=== PATIENT | female | born 1995 | race Caucasian/White ===

== ENCOUNTER → 2016-08-26 | Outpatient (CLI) | payer OTHER ==
[~2016-08-26] MED LIST: ACET50TA PO; IBUP80TA PO; PRENATAL VITAMIN PO; RANI15TA PO; TUMS500C PO; TYLE325T5 PO
--- NOTE | 2016-08-26 14:35 | REP ---
ABDOMINAL SERIES: Lower back pain. PRIORS: None. FINDINGS: Supine and upright views of the abdomen show the intestinal gas pattern to be nonspecific. Gas and stool is seen throughout the colon within the rectosigmoid region. The organ silhouettes insofar as delineated appear unremarkable. No abdominal calcific densities are seen within the abdomen or pelvis. The accompanying single frontal view of the chest shows no free subdiaphragmatic air, cardiomegaly, infiltrates or effusions. IMPRESSION: Nonspecific intestinal gas pattern. Signed by Elie Ospina DO 08/26/2016 03:23 P
[2016-08-26 16:52] LABS: MEAN CORPUSCULAR HEMOGLOBIN 27.9 pg (27.0-33.0); MEAN CORPUSCULAR HGB CONC 33.1 g/dl (32.0-36.5); MEAN CORPUSCULAR VOLUME 84.3 fl (80.0-96.0)
[2016-08-26 17:05] LABS: ALBUMIN/GLOBULIN RATIO 1.11 (1.00-1.93); ALKALINE PHOSPHATASE 138 U/L (45-117); ALT/SGPT 24 U/L (12-78); AMYLASE 36 U/L (25-115); ANION GAP 5 MEQ/L (8-16); AST/SGOT 14 U/L (15-37); BILIRUBIN,TOTAL 0.3 MG/DL (0.2-1.0); BLOOD UREA NITROGEN 9 MG/DL (7-18); CALCIUM LEVEL 9.3 MG/DL (8.5-10.1); CARBON DIOXIDE LEVEL 30 MEQ/L (21-32); CHLORIDE LEVEL 104 MEQ/L (98-107); CREATININE FOR GFR 0.82 MG/DL (0.55-1.02); FREE T4 1.01 NG/DL (0.76-1.46); GLOMERULAR FILTRATION RATE > 60.0 (>60); GLUCOSE, FASTING 87 MG/DL (70-105); POTASSIUM SERUM 4.1 MEQ/L (3.5-5.1); SODIUM LEVEL 139 MEQ/L (136-145); TOTAL PROTEIN 7.6 GM/DL (6.4-8.2)
[2016-08-26 20:43] LABS: EOSINOPHILS 3 % (0-5)
== END ==
LOC: M WUC 13:49
PROVIDERS: ATTEND Physician Assistant
DX: R10.30 Lower abdominal pain, unspecified (principal)

== ENCOUNTER → 2017-04-17 | Outpatient (CLI) | payer OTHER ==
[2017-04-17 19:09] LABS: BASO % 0.5 % (0.0-1.0); EOS % 0.5 % (0.0-3.0); HEMATOCRIT 41.3 % (36.0-47.0); HEMOGLOBIN 13.9 g/dl (12.0-16.0); IMMATURE GRANULOCYTE % 0.2 % (0-0); LYMPH # 1.6 10^3/uL (1.5-6.5); LYMPH % 24.3 % (24.0-44.0); MEAN CORPUSCULAR HEMOGLOBIN 28.7 pg (27.0-33.0); MEAN CORPUSCULAR HGB CONC 33.7 g/dl (32.0-36.5); MEAN CORPUSCULAR VOLUME 85.3 fl (80.0-96.0); MONO # 0.4 10^3/uL (0.0-0.8); MONO % 5.9 % (0.0-5.0); NEUTROPHILS # 4.4 10^3/uL (1.8-7.7); NEUTROPHILS % 68.6 % (36.0-66.0); PLATELET COUNT, AUTOMATED 259 10^3/uL (150-450); RED BLOOD COUNT 4.84 10^6/uL (4.00-5.40); RED CELL DISTRIBUTION WIDTH 12.9 % (11.5-14.5); WHITE BLOOD COUNT 6.4 10^3/uL (4.0-10.0)
[2017-04-17 19:54] LABS: ALT/SGPT 15 U/L (12-78); AST/SGOT 9 U/L (7-37); BILIRUBIN,TOTAL 0.3 MG/DL (0.2-1.0); GLOMERULAR FILTRATION RATE > 60.0 (>60); GLUCOSE CHALLENGE TEST 1 HOUR 105 MG/DL (LESS THAN 140); LDH LACTATE DEHYDROGENASE 136 U/L (84-246); URIC ACID 4.3 MG/DL (2.6-6.0)
[2017-04-17 21:39] LABS: CHLAMYDIA DNA AMPLIFICATION NEGATIVE (NEGATIVE); GC DNA AMPLIFICATION NEGATIVE (NEGATIVE)
[2017-04-17 21:42] LABS: ESTIMATED AVERAGE GLUCOSE 97 MG/DL (60-110)
[2017-04-19 11:18] LABS: RUBELLA IgG QUALITATIVE IMMUNE (IMMUNE)
[2017-04-19 11:37] LABS: HBsAg Prenatal NEGATIVE (NEGATIVE)
[2017-04-19 11:48] LABS: HIV 1&2 SCREEN CENTAUR NEGATIVE (NEGATIVE)
== END ==
LOC: M SMT 10:31
DX: Z34.81 Encounter for supervision of other normal pregnancy, first trimester (principal); Z3A.09 9 weeks gestation of pregnancy
CPT/HCPCS: 84460

== ENCOUNTER → 2017-05-22 | Outpatient (CLI) | payer OTHER | LOC: M SMT 13:04 | DX: Z34.82 Encounter for supervision of other normal pregnancy, second trimester (principal) | CPT/HCPCS: 76811 ==

== ENCOUNTER 2017-06-11 21:33 | Outpatient (CLI) | payer OTHER ==
[2017-06-11 22:29] LABS: HEMATOCRIT 35.2 % (36.0-47.0); MEAN CORPUSCULAR HEMOGLOBIN 28.6 pg (27.0-33.0); MEAN CORPUSCULAR HGB CONC 34.1 g/dl (32.0-36.5); PLATELET COUNT, AUTOMATED 228 10^3/uL (150-450); RED BLOOD COUNT 4.19 10^6/uL (4.00-5.40); RED CELL DISTRIBUTION WIDTH 12.6 % (11.5-14.5); WHITE BLOOD COUNT 9.6 10^3/uL (4.0-10.0)
[2017-06-11 22:44] LABS: ALBUMIN 3.1 GM/DL (3.2-5.2); ALBUMIN/GLOBULIN RATIO 0.84 (1.00-1.93); ALKALINE PHOSPHATASE 79 U/L (45-117); ALT/SGPT 15 U/L (12-78); ANION GAP 9 MEQ/L (8-16); AST/SGOT 7 U/L (7-37); BILIRUBIN,TOTAL 0.2 MG/DL (0.2-1.0); BLOOD UREA NITROGEN 9 MG/DL (7-18); CALCIUM LEVEL 8.6 MG/DL (8.5-10.1); CARBON DIOXIDE LEVEL 25 MEQ/L (21-32); CHLORIDE LEVEL 106 MEQ/L (98-107); CREATININE FOR GFR 0.52 MG/DL (0.55-1.30); GLOMERULAR FILTRATION RATE > 60.0 (>60); GLUCOSE, FASTING 95 MG/DL (70-100); LDH LACTATE DEHYDROGENASE 109 U/L (84-246); POTASSIUM SERUM 3.9 MEQ/L (3.5-5.1); SODIUM LEVEL 140 MEQ/L (136-145); TOTAL PROTEIN 6.8 GM/DL (6.4-8.2)
[2017-06-11 22:48] LABS: APPEARANCE, URINE CLEAR (CLEAR); BACTERIA, URINE AUTO 1+ (NEGATIVE); BILIRUBIN, URINE AUTO NEGATIVE (NEGATIVE); BLOOD, URINE BLOOD NEGATIVE (NEGATIVE); COLOR, URINE YELLOW (YELLOW); GLUCOSE, URINE (UA) AUTO NEGATIVE (NEGATIVE); KETONE, URINE AUTO NEGATIVE (NEGATIVE); LEUKOCYTE ESTERASE, URINE AUTO NEGATIVE (NEGATIVE); NITRITE, URINE AUTO NEGATIVE (NEGATIVE); PROTEIN, URINE AUTO NEGATIVE (NEGATIVE); RBC, URINE AUTO 0 /HPF (0-3); SQUAMOUS EPITHELIAL CELL UR AU 1 /HPF (0-6); UROBILINOGEN, URINE AUTO 0.2 mg/dL (0.0-2.0); WBC, URINE AUTO 1 /HPF (0-3)
[2017-06-11 23:07] LABS: CREATININE,RANDOM URINE 61.8 MG/DL
[2017-06-11 23:07] LABS: TOTAL PROTEIN,RANDOM URINE 10.5 MG/DL (0.0-12.0)
[2017-06-12] MEDS: SIMETHICONE 80 MG CHEW TAB PO (00:48)
== END 2017-06-12 01:00 | disposition home or self-care (01) ==
LOC: M LDO 21:33
DX: O99.89 Other specified diseases and conditions complicating pregnancy, childbirth and the puerperium (principal); Z3A.20 20 weeks gestation of pregnancy; O99.612 Diseases of the digestive system complicating pregnancy, second trimester; R19.7 Diarrhea, unspecified; R51 Headache; R10.13 Epigastric pain
CPT/HCPCS: 76705

== ENCOUNTER → 2017-07-10 | Outpatient (CLI) | payer OTHER | LOC: M SMT 11:24 | DX: Z36.2 Encounter for other antenatal screening follow-up (principal); Z3A.25 25 weeks gestation of pregnancy | CPT/HCPCS: 76816 ==

== ENCOUNTER → 2017-08-16 | Outpatient (CLI) | payer OTHER | LOC: M SMT 10:11 | DX: O10.013 Pre-existing essential hypertension complicating pregnancy, third trimester (principal); Z3A.30 30 weeks gestation of pregnancy | CPT/HCPCS: 76816 ==

== ENCOUNTER → 2017-08-22 | Outpatient (CLI) | payer OTHER ==
[2017-08-22 07:44] LABS: HEMATOCRIT 35.1 % (36.0-47.0); HEMOGLOBIN 11.8 g/dl (12.0-15.5); MEAN CORPUSCULAR HEMOGLOBIN 28.2 pg (27.0-33.0); MEAN CORPUSCULAR HGB CONC 33.6 g/dl (32.0-36.5); MEAN CORPUSCULAR VOLUME 83.8 fl (80.0-96.0); PLATELET COUNT, AUTOMATED 206 10^3/uL (150-450); RED BLOOD COUNT 4.19 10^6/uL (4.00-5.40); RED CELL DISTRIBUTION WIDTH 13.2 % (11.5-14.5); WHITE BLOOD COUNT 9.2 10^3/uL (4.0-10.0)
[2017-08-22 08:08] LABS: GLUCOSE CHALLENGE TEST 1 HOUR 135 MG/DL (LESS THAN 140)
== END ==
LOC: M LAB 06:13
DX: O10.02 Pre-existing essential hypertension complicating childbirth (principal)
CPT/HCPCS: 82950

== ENCOUNTER → 2017-08-31 | Outpatient (CLI) | payer OTHER ==
[2017-08-31 08:08] LABS: GLUCOSE, FASTING 85 MG/DL (LESS THAN 95)
[2017-08-31 09:49] LABS: 1 HR GLUCOSE 147 MG/DL (LESS THAN 180)
[2017-08-31 10:17] LABS: 2 HR GLUCOSE 135 MG/DL (LESS THAN 155)
[2017-08-31 11:10] LABS: 3 HR GLUCOSE 44 MG/DL (LESS THAN 140)
== END ==
LOC: M LAB 07:20
DX: O10.013 Pre-existing essential hypertension complicating pregnancy, third trimester (principal)
CPT/HCPCS: 82951

== ENCOUNTER → 2017-09-06 | Outpatient (CLI) | payer OTHER | LOC: M SMT 14:06 | DX: O10.013 Pre-existing essential hypertension complicating pregnancy, third trimester (principal); Z3A.33 33 weeks gestation of pregnancy | CPT/HCPCS: 76816 ==

== ENCOUNTER → 2017-09-21 | Outpatient (REF) | payer OTHER | LOC: M LAB REF 16:57 | DX: O10.013 Pre-existing essential hypertension complicating pregnancy, third trimester (principal) ==

== ENCOUNTER → 2017-10-10 | Outpatient (CLI) | payer OTHER | LOC: M RAD 13:55 | DX: O10.013 Pre-existing essential hypertension complicating pregnancy, third trimester (principal); Z3A.37 37 weeks gestation of pregnancy | CPT/HCPCS: 76816 ==

== ENCOUNTER 2017-10-13 07:18 | Inpatient (IN) | payer OTHER ==
[2017-10-13] MEDS: PENICILLIN G POTASSIUM IV 5 MU in D5W MINI-BAG PLUS 100 ML IV (09:05)
[2017-10-13] MEDS: miSOPROStol 50 MCG 1/2 TAB (S0191) PO ×3 (09:07→17:57)
[2017-10-13 09:09] LABS: HEMATOCRIT 32.9 % (36.0-47.0); MEAN CORPUSCULAR HEMOGLOBIN 26.8 pg (27.0-33.0); MEAN CORPUSCULAR HGB CONC 33.4 g/dl (32.0-36.5); PLATELET COUNT, AUTOMATED 182 10^3/uL (150-450); RED BLOOD COUNT 4.11 10^6/uL (4.00-5.40); RED CELL DISTRIBUTION WIDTH 13.5 % (11.5-14.5)
[2017-10-13 09:32] LABS: ALT/SGPT 13 U/L (12-78); AST/SGOT 11 U/L (7-37); BILIRUBIN,TOTAL 0.3 MG/DL (0.2-1.0); CREATININE FOR GFR 0.54 MG/DL (0.55-1.30); GLOMERULAR FILTRATION RATE > 60.0 (>60); LDH LACTATE DEHYDROGENASE 198 U/L (84-246)
[2017-10-13] MEDS: PENICILLIN G POTASSIUM IV 2.5 MU in APPROPRIATE DILUENT 1 EA IV ×3 (13:12→21:52)
[2017-10-13] MEDS: LR 1,000 ML IV (20:31)
[2017-10-13] MEDS: OXYTOCIN DRIP 30 UNITS in APPROPRIATE DILUENT 1 EA IV (22:12)
[2017-10-14] MEDS: PENICILLIN G POTASSIUM IV 2.5 MU in APPROPRIATE DILUENT 1 EA IV (01:52)
[2017-10-14] MEDS ORDERED: FENTANYL 2MCG/ML ROPIVACAINE 0.2% IN 0.9% NACL 200ML IVBAG As Ordered (03:45)
[2017-10-14] MEDS ORDERED: ePHEDrine SULFATE 25 MG/5 ML(5MG/ML) SYRINGE IV (05:45)
[2017-10-14] MEDS ORDERED: ONDANSETRON 4MG/2ML VIAL (J2405) IV (05:45)
[2017-10-14] MEDS ORDERED: EPIDURAL/PCA KEYS XX (05:45)
[2017-10-14] MEDS ORDERED: EPIDURAL COMMENT XX (05:45)
[2017-10-14] MEDS ORDERED: LACTATED RINGER'S 1000 ML IV (05:45)
[2017-10-14] MEDS ORDERED: FENTANYL/ROPIVACAINE/NACL BAG 200 ML EPIDURAL (05:45)
[2017-10-14] MEDS ORDERED: diphenhydrAMINE INJ 50MG/ML VIAL (J1200) IV (05:45)
[2017-10-14] MEDS ORDERED: NALOXONE INJ 0.4 MG/1 ML VIAL (J2310) IV (05:45)
[2017-10-14] MEDS ORDERED: REFRIGERATOR IV KEYS XX (05:45)
[2017-10-14] MEDS: OXYTOCIN DRIP 30 UNITS in APPROPRIATE DILUENT 1 EA IV (06:55)
[2017-10-14] MEDS ORDERED: DOCUSATE SODIUM 100 MG CAP PO (07:00)
[2017-10-14] MEDS ORDERED: ANUSOL HC CREAM 30GM TOP (07:00)
[2017-10-14] MEDS ORDERED: ACETAMINOPHEN 500 MG TAB PO (07:00)
[2017-10-14] MEDS ORDERED: DIBUCAINE 1% OINTMENT 30GM TOP (07:00)
[2017-10-14] MEDS ORDERED: MEASLES,MUMPS,RUBELLA VACCINE INJ (MMR-II) (90707) SC (07:00)
[2017-10-14] MEDS ORDERED: RHOGAM 300 MCG (1500 IU) INJ (J2790) IM (07:00)
[2017-10-14] MEDS: PRENATAL VITAMINS CHEWABLE TABLET PO (08:57)
[2017-10-14] MEDS: IBUPROFEN 800 MG TAB PO (15:03)
[2017-10-15] MEDS: IBUPROFEN 800 MG TAB PO (05:33)
[2017-10-15] MEDS: PRENATAL VITAMINS CHEWABLE TABLET PO (08:26)
== END 2017-10-15 11:50 | disposition home or self-care (01) | DRG 560 ==
LOC: M LDI 07:18 → M OBS 10-14 08:41
PROC: 3E0DXGC Introduction of Other Therapeutic Substance into Mouth and Pharynx, External Approach (ICD-10-PCS; 2017-10-13)
PROC: 10E0XZZ Delivery of Products of Conception, External Approach (ICD-10-PCS; principal; 2017-10-14)
DX: O13.4 Gestational [pregnancy-induced] hypertension without significant proteinuria, complicating childbirth (principal); O99.344 Other mental disorders complicating childbirth; F32.9 Major depressive disorder, single episode, unspecified; Z37.0 Single live birth; Z3A.38 38 weeks gestation of pregnancy; O99.824 Streptococcus B carrier state complicating childbirth; Z79.899 Other long term (current) drug therapy; O69.81X0 Labor and delivery complicated by cord around neck, without compression, not applicable or unspecified

== ENCOUNTER → 2019-04-11 | Outpatient (REF) | payer OTHER ==
[~2019-04-11] MED LIST changes: -ACET50TA PO; +IBUP-1114 PO; +MAPA500T2 PO
[2019-04-11 17:14] LABS: INFLUENZA A AMPLIFICATION NEGATIVE (NEGATIVE); INFLUENZA B AMPLIFICATION NEGATIVE (NEGATIVE)
== END ==
LOC: M LAB REF 16:29
PROVIDERS: ATTEND Physician Assistant
DX: R50.9 Fever, unspecified (principal)

== ENCOUNTER → 2019-04-12 | Outpatient (REF) | payer OTHER | LOC: M LAB REF 17:06 | PROVIDERS: ATTEND Physician Assistant | DX: R50.9 Fever, unspecified (principal); J02.9 Acute pharyngitis, unspecified ==

== ENCOUNTER → 2019-07-22 | Outpatient (CLI) | payer OTHER ==
[2019-07-22 07:14] LABS: ALBUMIN 3.7 GM/DL (3.2-5.2); ALT/SGPT 22 U/L (12-78); BILIRUBIN,TOTAL 0.4 MG/DL (0.2-1.0); BLOOD UREA NITROGEN 10 MG/DL (7-18); CALCIUM LEVEL 8.7 MG/DL (8.5-10.1); CARBON DIOXIDE LEVEL 26 MEQ/L (21-32); CHLORIDE LEVEL 107 MEQ/L (98-107); CHOLESTEROL LEVEL 146 MG/DL (<200); CHOLESTEROL RISK RATIO 4.294 (<5); CREATININE FOR GFR 0.73 MG/DL (0.55-1.30); FREE T4 0.99 NG/DL (0.76-1.46); GLOMERULAR FILTRATION RATE > 60.0 (>60); GLUCOSE, FASTING 84 MG/DL (70-100); HDL CHOLESTEROL 34 MG/DL (>40); LDL CHOLESTEROL 96 MG/DL (<100); NON-HDL-C 112 MG/DL; POTASSIUM SERUM 4.1 MEQ/L (3.5-5.1); SODIUM LEVEL 139 MEQ/L (136-145); TOTAL PROTEIN 7.2 GM/DL (6.4-8.2); TRIGLYCERIDES LEVEL 80 MG/DL (<150)
== END ==
LOC: M LAB 06:03
PROVIDERS: ATTEND Nurse Practitioner Family
DX: F43.23 Adjustment disorder with mixed anxiety and depressed mood (principal); M25.561 Pain in right knee; Z13.220 Encounter for screening for lipoid disorders; Z13.1 Encounter for screening for diabetes mellitus; Z87.39 Personal history of other diseases of the musculoskeletal system and connective tissue

== ENCOUNTER 2019-07-29 18:53 | Emergency (ER) | payer OTHER ==
[~2019-07-29] VITALS: Ht 165.1 cm; Wt 106.8 kg
[2019-07-29] MEDS ORDERED: SERT25TA21 PO (19:05)
[2019-07-29] MEDS ORDERED: LORazepam 2 MG/ML VIAL (J2060) IV STA (19:33)
[2019-07-29] MEDS ORDERED: LORazepam 2 MG/ML VIAL (J2060) As Ordered ONE (19:42)
[2019-07-29 19:45] LABS: BASO # 0.1 10^3/uL (0.0-0.2); BASO % 0.6 % (0.0-1.0); EOS # 0.2 10^3/uL (0.0-0.5); HEMATOCRIT 44.3 % (36.0-47.0); HEMOGLOBIN 14.6 g/dl (12.0-15.5); LYMPH % 33.1 % (24.0-44.0); MEAN CORPUSCULAR HEMOGLOBIN 28.2 pg (27.0-33.0); MEAN CORPUSCULAR VOLUME 85.7 fl (80.0-96.0); MONO # 0.5 10^3/uL (0.0-0.8); MONO % 5.9 % (0.0-5.0); NEUTROPHILS # 5.2 10^3/uL (1.5-8.5); NEUTROPHILS % 58.2 % (36.0-66.0); PLATELET COUNT, AUTOMATED 298 10^3/uL (150-450); RED BLOOD COUNT 5.17 10^6/uL (4.00-5.40)
[2019-07-29 20:22] LABS: BLOOD UREA NITROGEN 12 MG/DL (7-18); CALCIUM LEVEL 8.9 MG/DL (8.5-10.1); CARBON DIOXIDE LEVEL 24 MEQ/L (21-32); CHLORIDE LEVEL 108 MEQ/L (98-107); CK-MB VALUE MASS < 1.0 NG/ML (<3.6); CPK CREATINE PHOSPHOKINASE 79 U/L (26-192); CREATININE FOR GFR 0.72 MG/DL (0.55-1.30); FREE T4 0.92 NG/DL (0.76-1.46); GLOMERULAR FILTRATION RATE > 60.0 (>60); GLUCOSE, FASTING 83 MG/DL (70-100); MB/CK RELATIVE INDEX 1.27 (< OR =4); POTASSIUM SERUM 3.9 MEQ/L (3.5-5.1); SODIUM LEVEL 140 MEQ/L (136-145); TROPONIN I < 0.02 NG/ML (< 0.10)
[2019-07-29 20:35] LABS: HCG, SERUM QUALITATIVE NEGATIVE (NEGATIVE)
[2019-07-29] MEDS ORDERED: ISOVUE-370 76% 100ML VIAL As Ordered ONE (21:44)
[2019-07-29] MEDS ORDERED: KETOROLAC 30 MG/ML 1ML VIAL IV ONE (22:00)
--- NOTE | 2019-07-29 22:20 | REPVR ---
PROCEDURE INFORMATION: Exam: CT Angiography Chest With Contrast Exam date and time: 07/29/2019 9:55 PM Age: 23 years old Clinical indication: Chest pain; Additional info: Central chest pressure, d-dimer positive TECHNIQUE: Imaging protocol: Computed tomographic angiography of the chest with intravenous contrast. 3D rendering: MIP and/or 3D reconstructed images were created by the technologist. Radiation optimization: All CT scans at this facility use at least one of these dose optimization techniques: automated exposure control; mA and/or kV adjustment per patient size (includes targeted exams where dose is matched to clinical indication); or iterative reconstruction. Contrast material: ISO 370; Contrast volume: 75 ml; Contrast route: IV; COMPARISON: CR PORTABLE CHEST X-RAY 07/29/2019 7:39 PM FINDINGS: Pulmonary arteries: There is no pulmonary embolism in the main, lobar, or segmental pulmonary arteries. The timing of the contrast bolus was suboptimal for the assessment of the subsegmental pulmonary arteries, which are poorly opacified. Great vessels off aortic arch: The brachiocephalic artery, imaged proximal portion of the left common carotid artery, and left subclavian artery are intact. No stenosis or occlusion of these vessels is noted. Aorta: The thoracic aorta is intact and patent. There is no thoracic aortic aneurysm, pseudoaneurysm, penetrating atherosclerotic ulcer, intramural hematoma, or dissection. Tracheobronchial tree: Intact and patent. Lungs: There are subpleural nodules in the right middle lobe, right lower lobe, and along the right major fissure (images 28, 37, and 38 of the axial series 402) measuring up to 5 mm. The lungs are otherwise clear. There is no lung consolidation. No emphysematous changes or interstitial lung disease is noted. Pleural space: Normal. No pneumothorax or pleural effusion. Heart: No cardiomegaly. No pericardial effusion. The ratio of the diameter of the right ventricle to the diameter of the left ventricle measures less than 1, which is within normal limits and there is no evidence for a right ventricular strain. Mediastinum: No mediastinal mass, fluid collection, or pneumomediastinum. No mediastinal mass, fluid collection, or pneumomediastinum. Lymph nodes: No enlarged lymph nodes. Gallbladder and bile ducts: No calcified gallstones are noted. No gallbladder wall thickening, pericholecystic fluid, or pericholecystic inflammatory changes are identified. No dilation of the bile ducts is noted. No calcified stones are seen in the common bile duct. Spleen: The spleen is heterogeneous in appearance, which is likely secondary to the arterial timing of the contrast bolus. No splenomegaly. Adrenals: Normal. No adrenal mass is noted. Bones/joints: No fracture or dislocation is noted. There is no suspicious osteolytic or osteoblastic lesion. There is a lupt-it-ajnlhwpy dextroscoliosis of the thoracic spine. Soft tissues: Unremarkable. No soft tissue fluid collection. IMPRESSION: 1. No acute findings in the chest. No pulmonary embolism in the main, lobar, or segmental pulmonary arteries. The timing of the contrast bolus was suboptimal for the assessment of the subsegmental pulmonary arteries, which are poorly opacified. 2. Subpleural nodules in the right lung measuring up to 5 mm. If patient does not have known cancer, follow up should be based on clinical information because of the low risk of cancer in this age group. (Rony et al., Fleischner Society, 2017) REFERENCE: Rony H, aTcho DP, Taylor SANCHEZ, et al. Guidelines for Management of Incidental Pulmonary Nodules Detected on CT images: From the Fleischner Society 2017. Radiology, September 2016;284(1):228-243. http://pubs.rsna.org/doi/pdf/10.1148/[email or web address] Electronically signed by: Chace Garcia On 07/29/2019 22:19:46 PM
[2019-07-29] MEDS ORDERED: NAPR-837 PO (23:07)
[2019-07-29 23:30] VITALS: BP 129/84
--- NOTE | 2019-07-30 08:10 | REP ---
REASON: Chest pain. FINDINGS: The technique utilized in obtaining the radiograph has magnified the cardiac silhouette and accentuated the interstitial markings. The superior mediastinal structures are midline. The cardiac silhouette is unremarkable in size, shape, and position. The diaphragmatic surfaces of the lungs are regular, and the costophrenic angles are clear. The pulmonary marc are clear. The imaged osseous structures are intact. IMPRESSION: There is no acute cardiopulmonary disease. No significant change from the prior frontal view of the chest 08/26/2016. Electronically Signed by Elie Ospina DO 07/30/2019 09:38 A
--- NOTE | 2019-07-30 14:23 | ED PDOC ---
Post-Departure Follow-Up cta chest faxed to [facility] for fu Mayank Kaur MD July 30, 2019 14:23
--- NOTE | 2019-07-31 08:48 | ECGEPIP ---
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
== END 2019-07-29 23:43 | disposition home or self-care (01) ==
LOC: M ED 18:53
DX: R07.89 Other chest pain (principal); F41.1 Generalized anxiety disorder; J30.1 Allergic rhinitis due to pollen; Z82.49 Family history of ischemic heart disease and other diseases of the circulatory system; Z79.899 Other long term (current) drug therapy
CPT/HCPCS: 71045; 71275; 80048; 82550; 82553; 84439; 84443; 84703; 85025; 85379; 93005; 93041; 94760; 96374; 96375; 99284; J1885; J2060; Q9967

== ENCOUNTER → 2020-03-11 | Outpatient (CLI) | payer OTHER ==
[~2020-03-11] MED LIST changes: +NAPR-837 PO; +SERT25TA21 PO
[2020-03-11 14:50] LABS: FREE T4 0.9 NG/DL (0.76-1.46); THYROID STIMULATING HORMONE 1.42 uIU/ML (0.358-3.740)
[2020-03-11 14:51] LABS: TOTAL 25(OH) VITAMIN D 22.1 NG/ML (30.0-100.0)
== END ==
LOC: M LAB 13:22
PROVIDERS: ATTEND Nurse Practitioner Family
DX: F41.1 Generalized anxiety disorder (principal); E55.9 Vitamin D deficiency, unspecified

== ENCOUNTER 2020-07-08 09:28 | Emergency (ER) | payer OTHER ==
[~2020-07-08] VITALS: Ht 165.1 cm; Wt 115.4 kg
[2020-07-08 09:29] VITALS: BP 139/86
[2020-07-08] MEDS ORDERED: CETI-24 PO (09:35)
[2020-07-08] MEDS ORDERED: VITA50005 PO (09:35)
[2020-07-08] MEDS ORDERED: NAPR-837 PO (10:04)
[2020-07-08] MEDS ORDERED: CYCL-707 PO (10:04)
== END 2020-07-08 10:00 | disposition home or self-care (01) ==
LOC: M ED 09:28
DX: S13.4XXA Sprain of ligaments of cervical spine, initial encounter (principal); S23.3XXA Sprain of ligaments of thoracic spine, initial encounter; W10.9XXA Fall (on) (from) unspecified stairs and steps, initial encounter; Y92.9 Unspecified place or not applicable; Y93.9 Activity, unspecified; Y99.9 Unspecified external cause status; J30.2 Other seasonal allergic rhinitis; Z79.899 Other long term (current) drug therapy

== ENCOUNTER → 2020-10-08 | Outpatient (REF) | payer OTHER ==
[~2020-10-08] MED LIST changes: +CETI-24 PO; +CYCL-707 PO; +ERGO500029 PO
== END ==
LOC: M SFHCWAGY 13:13
PROVIDERS: ATTEND Advanced Practice Midwife
DX: Z12.4 Encounter for screening for malignant neoplasm of cervix (principal)

== ENCOUNTER → 2020-10-15 | Outpatient (CLI) | payer OTHER ==
[2020-10-15 08:46] LABS: FREE T4 1.18 NG/DL (0.76-1.46); THYROID STIMULATING HORMONE 4.34 uIU/ML (0.358-3.740)
== END ==
LOC: M LAB 07:21
PROVIDERS: ATTEND Advanced Practice Midwife
DX: N92.6 Irregular menstruation, unspecified (principal)

== ENCOUNTER → 2020-11-03 | Outpatient (CLI) | payer OTHER ==
--- NOTE | 2020-11-03 11:41 | REP ---
INDICATION: IRREGULAR CYCLES. COMPARISON: None. TECHNIQUE: Transvesical and transvaginal scanning FINDINGS: The uterus measures 10.2 x 4.1 x 5.2 cm. The parenchymal echo pattern is within normal limits. The endometrial echo complex is smooth and unremarkable appearing measuring 5 mm in its greatest thickness. Within the lower uterine segment there is a specular reflection consistent with an IUD. This distorts that portion of the endometrial echo complex. The right ovary measures 2.3 x 1.9 x 2.1 cm and is within normal limits with an RI 0.48 Left ovary measures 4.2 x 3.5 x 4.0 cm. Within the left ovary there is a 3.2 x 2.7 x 3 cm sized nearly anechoic structure with low level echoes within it but exhibiting posterior wall enhancement and increased through transmission. The left ovarian RI was not obtained IMPRESSION: 1. IUD as described above. 2. Slightly complex left ovarian cyst. Possibly slightly hemorrhagic. Two month follow-up is suggested. <Electronically signed by Elie Ospina > 11/03/20 [id number]
== END ==
LOC: M WHC 09:32
PROVIDERS: ATTEND Advanced Practice Midwife
DX: N83.292 Other ovarian cyst, left side (principal); Z97.5 Presence of (intrauterine) contraceptive device; N92.6 Irregular menstruation, unspecified

== ENCOUNTER → 2021-05-13 | Outpatient (CLI) | payer OTHER ==
[2021-05-13 09:51] LABS: BASO # 0.1 10^3/uL (0.0-0.2); BASO % 0.9 % (0.0-1.0); EOS # 0.1 10^3/uL (0.0-0.5); EOS % 1.5 % (0.0-3.0); HEMATOCRIT 41.8 % (36.0-47.0); HEMOGLOBIN 13.7 g/dl (12.0-15.5); LYMPH % 37.6 % (24.0-44.0); MEAN CORPUSCULAR HEMOGLOBIN 28.3 pg (27.0-33.0); MEAN CORPUSCULAR HGB CONC 32.8 g/dl (32.0-36.5); MEAN CORPUSCULAR VOLUME 86.4 fl (80.0-96.0); MONO # 0.4 10^3/uL (0.0-0.8); MONO % 7.6 % (2.0-8.0); NEUTROPHILS # 2.8 10^3/uL (1.5-8.5); PLATELET COUNT, AUTOMATED 450 10^3/uL (150-450); RED BLOOD COUNT 4.84 10^6/uL (4.00-5.40); WHITE BLOOD COUNT 5.3 10^3/uL (4.0-10.0)
[2021-05-13 10:18] LABS: HEMOGLOBIN A1c 5.1 %
[2021-05-13 10:30] LABS: ALBUMIN 3.9 GM/DL (3.2-5.2); ALT/SGPT 29 U/L (12-78); BILIRUBIN,TOTAL 0.7 MG/DL (0.2-1.0); BLOOD UREA NITROGEN 13 MG/DL (7-18); CALCIUM LEVEL 9.2 MG/DL (8.5-10.1); CARBON DIOXIDE LEVEL 26 MEQ/L (21-32); CHLORIDE LEVEL 108 MEQ/L (98-107); FREE T4 1.15 NG/DL (0.76-1.46); GLOMERULAR FILTRATION RATE > 60.0 (>60); GLUCOSE, FASTING 81 MG/DL (70-100); POTASSIUM SERUM 4.5 MEQ/L (3.5-5.1); SODIUM LEVEL 140 MEQ/L (136-145); TOTAL PROTEIN 7.5 GM/DL (6.4-8.2)
== END ==
LOC: M LAB 09:08
PROVIDERS: ATTEND Physician Assistant
DX: E03.9 Hypothyroidism, unspecified (principal); F41.1 Generalized anxiety disorder; Z68.41 Body mass index [BMI] 40.0-44.9, adult

== ENCOUNTER → 2022-03-31 | Outpatient (CLI) | payer OTHER ==
[2022-03-31 11:01] LABS: MEAN CORPUSCULAR HEMOGLOBIN 29.7 pg (27.0-33.0); MEAN CORPUSCULAR HGB CONC 33.3 g/dl (32.0-36.5); PLATELET COUNT, AUTOMATED 219 10^3/uL (150-450); RED BLOOD COUNT 4.38 10^6/uL (4.00-5.40)
[2022-03-31 11:40] LABS: HIV 1&2 SCREEN CENTAUR NEGATIVE (NEGATIVE)
[2022-03-31 11:48] LABS: HEPATITIS C VIRUS ABY INDEX 0.1 INDEX (<0.8)
[2022-03-31 16:11] LABS: GC DNA AMPLIFICATION NEGATIVE (NEGATIVE)
== END ==
LOC: M PLALAB 08:53
PROVIDERS: ATTEND Advanced Practice Midwife
DX: Z34.91 Encounter for supervision of normal pregnancy, unspecified, first trimester (principal)

== ENCOUNTER → 2022-04-15 | Outpatient (REF) | payer OTHER | LOC: M LAB REF 12:21 | PROVIDERS: ATTEND Physician Assistant | DX: J02.9 Acute pharyngitis, unspecified (principal) ==

== ENCOUNTER → 2022-04-25 | Outpatient (CLI) | payer OTHER ==
[2022-04-25 18:28] LABS: URIC ACID 4.8 MG/DL (3.1-7.8)
[2022-04-25 18:30] LABS: LDH LACTATE DEHYDROGENASE 124 U/L (120-246)
[2022-04-25 18:31] LABS: ALT/SGPT 27 U/L (7.0-40); AST/SGOT 22 U/L (<34); BILIRUBIN,TOTAL 0.3 MG/DL (0.3-1.2); CREATININE FOR GFR 0.69 MG/DL (0.55-1.30); GLOMERULAR FILTRATION RATE > 60.0 (>60)
[2022-04-25 18:50] LABS: CREATININE,RANDOM URINE 38.6 MG/DL
[2022-04-25 18:52] LABS: TOTAL PROTEIN,RANDOM URINE < 6.0 MG/DL (0.0-14.0)
== END ==
LOC: M PLALAB 15:15
PROVIDERS: ATTEND Advanced Practice Midwife
DX: Z34.92 Encounter for supervision of normal pregnancy, unspecified, second trimester (principal); Z3A.00 Weeks of gestation of pregnancy not specified

== ENCOUNTER → 2022-05-19 | Outpatient (CLI) | payer OTHER | LOC: M WHC 12:45 | PROVIDERS: ATTEND Advanced Practice Midwife | DX: O32.1XX0 Maternal care for breech presentation, not applicable or unspecified (principal); Z36.89 Encounter for other specified antenatal screening; Z3A.19 19 weeks gestation of pregnancy ==

== ENCOUNTER → 2022-07-15 | Outpatient (CLI) | payer OTHER ==
[2022-07-15 13:54] LABS: HEMOGLOBIN 11.9 g/dl (12.0-15.5); MEAN CORPUSCULAR HEMOGLOBIN 29.8 pg (27.0-33.0); MEAN CORPUSCULAR HGB CONC 33.1 g/dl (32.0-36.5); PLATELET COUNT, AUTOMATED 210 10^3/uL (150-450); WHITE BLOOD COUNT 8.6 10^3/uL (4.0-10.0)
[2022-07-15 15:22] LABS: GC DNA AMPLIFICATION NEGATIVE (NEGATIVE)
== END ==
LOC: M PLALAB 09:23
PROVIDERS: ATTEND Advanced Practice Midwife
DX: Z34.82 Encounter for supervision of other normal pregnancy, second trimester (principal)

== ENCOUNTER → 2022-08-25 | Outpatient (CLI) | payer OTHER ==
[2022-08-25 13:42] LABS: HEMATOCRIT 33.4 % (36.0-47.0); HEMOGLOBIN 11.1 g/dl (12.0-15.5); MEAN CORPUSCULAR HEMOGLOBIN 29.1 pg (27.0-33.0); MEAN CORPUSCULAR HGB CONC 33.2 g/dl (32.0-36.5); MEAN CORPUSCULAR VOLUME 87.4 fl (80.0-96.0); PLATELET COUNT, AUTOMATED 189 10^3/uL (150-450); RED BLOOD COUNT 3.82 10^6/uL (4.00-5.40)
[2022-08-25 14:05] LABS: CREATININE,RANDOM URINE 82.9 MG/DL
[2022-08-25 14:06] LABS: URIC ACID 5.6 MG/DL (3.1-7.8)
[2022-08-25 14:08] LABS: LDH LACTATE DEHYDROGENASE 151 U/L (120-246)
[2022-08-25 14:09] LABS: ALT/SGPT 12 U/L (7.0-40); AST/SGOT 13 U/L (<34); BILIRUBIN,TOTAL 0.4 MG/DL (0.3-1.2); CREATININE FOR GFR 0.57 MG/DL (0.55-1.30); GLOMERULAR FILTRATION RATE > 60.0 (>60)
== END ==
LOC: M PLALAB 11:20
PROVIDERS: ATTEND Advanced Practice Midwife
DX: Z34.83 Encounter for supervision of other normal pregnancy, third trimester (principal)

== ENCOUNTER → 2022-09-09 | Outpatient (REF) | payer OTHER ==
[~2022-09-09] MED LIST changes: +ACET500P3 PO; +PRENTAB9 PO
== END ==
LOC: M SFHCWAGY 12:59
PROVIDERS: ATTEND Advanced Practice Midwife
DX: Z36.85 Encounter for antenatal screening for Streptococcus B (principal)

== ENCOUNTER → 2022-09-09 | Outpatient (CLI) | payer OTHER | LOC: M WHC 11:37 | PROVIDERS: ATTEND Advanced Practice Midwife | DX: O13.3 Gestational [pregnancy-induced] hypertension without significant proteinuria, third trimester (principal); Z53.9 Procedure and treatment not carried out, unspecified reason ==

== ENCOUNTER → 2022-09-12 | Outpatient (CLI) | payer OTHER | LOC: M RAD 08:31 | PROVIDERS: ATTEND Advanced Practice Midwife | DX: O13.3 Gestational [pregnancy-induced] hypertension without significant proteinuria, third trimester (principal); Z3A.35 35 weeks gestation of pregnancy ==

== ENCOUNTER 2022-09-14 11:55 | Outpatient (CLI) | payer OTHER ==
[~2022-09-14 11:55] MED LIST changes: -ACET500P3 PO; -PRENTAB9 PO
[2022-09-14 12:11] VITALS: BP 118/80
[2022-09-14] MEDS ORDERED: FIORICET TAB PO PRN (12:15)
[2022-09-14 12:40] LABS: HEMATOCRIT 33.6 % (36.0-47.0); HEMOGLOBIN 11.4 g/dl (12.0-15.5); MEAN CORPUSCULAR HEMOGLOBIN 28.8 pg (27.0-33.0); MEAN CORPUSCULAR HGB CONC 33.9 g/dl (32.0-36.5); MEAN CORPUSCULAR VOLUME 84.8 fl (80.0-96.0); PLATELET COUNT, AUTOMATED 215 10^3/uL (150-450); RED BLOOD COUNT 3.96 10^6/uL (4.00-5.40); WHITE BLOOD COUNT 9.3 10^3/uL (4.0-10.0)
[2022-09-14] MEDS ORDERED: PRENTAB9 PO (12:49)
[2022-09-14] MEDS ORDERED: ACET500P3 PO (12:49)
[2022-09-14 13:04] LABS: URIC ACID 4.9 MG/DL (3.1-7.8)
[2022-09-14 13:06] LABS: LDH LACTATE DEHYDROGENASE 160 U/L (120-246)
[2022-09-14 13:07] LABS: ALT/SGPT < 9 U/L (7.0-40); AST/SGOT 11 U/L (<34); BILIRUBIN,TOTAL 0.4 MG/DL (0.3-1.2); CREATININE FOR GFR 0.46 MG/DL (0.55-1.30); GLOMERULAR FILTRATION RATE > 60.0 (>60)
[2022-09-14 14:47] LABS: TOTAL PROTEIN,RANDOM URINE 6.5 MG/DL (0.0-14.0)
[2022-09-14 14:52] LABS: CREATININE,RANDOM URINE 58.4 MG/DL
== END 2022-09-14 15:15 | disposition home or self-care (01) ==
LOC: M LDO 11:55
PROVIDERS: ATTEND Advanced Practice Midwife
DX: O13.3 Gestational [pregnancy-induced] hypertension without significant proteinuria, third trimester (principal); O26.893 Other specified pregnancy related conditions, third trimester; R51.0 Headache with orthostatic component, not elsewhere classified; Z3A.36 36 weeks gestation of pregnancy
CPT/HCPCS: 36415; 59025; 82247; 82565; 82570; 83615; 84156; 84450; 84460; 84550; 85027; G0463